=== PATIENT | male | born 1985 | race Caucasian/White ===

== ENCOUNTER 2016-12-16 23:48 | Inpatient (IN) | payer OTHER ==
[~2016-12-16] VITALS: Ht 167.6 cm; Wt 76.9 kg
[2016-12-16 23:49] VITALS: BP 115/81; PULSE 118; RESP 18; TEMP 98.9; O2SAT 97
[2016-12-17] VITALS (10 sets, daily range): BP systolic 114–133; BP diastolic 60–86; PULSE 82–111; RESP 12–21; TEMP 97.7–98.4; O2SAT 98–100
[2016-12-17] MEDS ORDERED: NOVOLOGP2 SQ (00:06)
[2016-12-17] MEDS ORDERED: LEVEMIR SQ (00:06)
[2016-12-17] MEDS ORDERED: SODIUM CHLOR 0.9% 1000 ML INJ 1,000 ML IV ONE ×2 (00:30)
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
--- NOTE | 2016-12-17 00:50 | RADRPT ---
EXAM DATE/TIME: 12/17/2016 00:29 [place] COMPARISON: No previous studies available for comparison. INDICATIONS : Cough. MEDICAL HISTORY : Diabetes mellitus type II. SURGICAL HISTORY : None. ENCOUNTER: Initial ACUITY: 1 day PAIN SCORE: 0/10 LOCATION: Bilateral chest FINDINGS: A single view of the chest demonstrates the lungs to be symmetrically aerated without evidence of mas s, infiltrate or effusion. The cardiomediastinal contours are unremarkable. Osseous structures are intact. CONCLUSION: Normal examination. Clive Felix MD on December 17, 2016 at 0:48 Board Certified Radiologist. This report was verified electronically.
[2016-12-17 01:11] LABS: ANION GAP 16 MEQ/L (5-15); AST (GOT) 15 U/L (15-37); BICARBONATE 22.4 MEQ/L (21.0-32.0); BLOOD UREA NITROGEN 15 MG/DL (7-18); CHLORIDE 96 MEQ/L (98-107); GLOMERULAR FILTRATION RATE 71 ML/MIN (>89); MAGNESIUM 1.9 MG/DL (1.5-2.5); POTASSIUM 3.6 MEQ/L (3.5-5.1); SODIUM (NA) 134 MEQ/L (136-145)
[2016-12-17 01:14] LABS: ALKALINE PHOSPHATASE 116 U/L (45-117); ALT (GPT) 22 U/L (12-78); BETA-HYDROXYBUTYRATE 4.48 MMOL/L (0.00-0.39); TOTAL BILIRUBIN ADULT 0.6 MG/DL (0.2-1.0)
[2016-12-17 02:25] LABS: AUTOMATED NEUTROPHIL # 4.3 TH/MM3 (1.8-7.7); BASOPHIL % 0.5 % (0.0-2.0); EOSINOPHIL # 0.1 TH/MM3 (0-0.4); EOSINOPHIL % 1.9 % (0.0-4.0); HEMATOCRIT 38.8 % (39.0-51.0); HEMO FLAGS DIFF FINAL; LYMPH % 28.1 % (9.0-44.0); MEAN CELL VOLUME 90.8 FL (80.0-100.0); MEAN CORPUSCULAR HEMOGLOBIN 31.8 PG (27.0-34.0); NEUT % 61.5 % (16.0-70.0); PLATELET COUNT 228 TH/MM3 (150-450); RED BLOOD COUNT 4.27 MIL/MM3 (4.50-5.90); RED CELL DISTRIBUTION WIDTH 12.5 % (11.6-17.2); WHITE BLOOD COUNT 6.9 TH/MM3 (4.0-11.0)
[2016-12-17] MEDS ORDERED: ONDANSETRON HCL 4 MG/2 ML VIAL IV ONE (02:45)
[2016-12-17] MEDS ORDERED: INSULIN HUMAN REGULAR 1,000 UNITS/10 ML VIAL SQ ONE (03:00)
[2016-12-17] MEDS ORDERED: SODIUM CHLOR 0.9% 1000 ML INJ 1,000 ML IV SCH (03:30)
[2016-12-17 04:01] LABS: BICARBONATE 17.1 MEQ/L (21.0-32.0); POTASSIUM 3.8 MEQ/L (3.5-5.1)
[2016-12-17 04:13] LABS: BLOOD, URINE NEG (NEG); GLUCOSE,URINE 1000 mg/dL (NEG); KETONE, URINE 150 mg/dL (NEG); MUCUS URINE FEW /lpf (OCC); NITRITE,URINE NEG (NEG); SQUAMOUS EPITHELIAL CELL URINE <1 /hpf (0-5); URINE COLOR LIGHT-YELLOW (YELLW/STRAW)
[2016-12-17] MEDS ORDERED: SODIUM CHLORIDE 0.9% FLUSH 10 ML FLUSH IV FLUSH PRN (04:30)
[2016-12-17] MEDS ORDERED: INSULIN REGULAR (IV INFUSION) 100 UNITS in SODIUM CHLORIDE 0.9% INJ 99 ML IV SCH (04:30)
[2016-12-17] MEDS ORDERED: MISC INFORMATION OTHER ONE (04:30)
[2016-12-17] MEDS ORDERED: DEXT 5%-NACL 0.45% 1000 ML INJ 1,000 ML IV SCH (04:30)
[2016-12-17] MEDS ORDERED: MISCELLANEOUS NURSING INFORMATION XX SCH (04:30)
[2016-12-17] MEDS ORDERED: DEXTROSE 50% IN WATER 50 ML VIAL(D50) IV PUSH PRN (04:30)
[2016-12-17] MEDS ORDERED: POTASSIUM CHLOR 40 MEQ PREMIX 100 ML IV PRN ×2 (04:30)
[2016-12-17] MEDS ORDERED: SODIUM BICARBONATE 8.4% SOLN 50 MEQ/50 ML VIAL IV PRN ×2 (04:30)
[2016-12-17] MEDS ORDERED: POTASSIUM CHLOR 20 MEQ PREMIX 100 ML IV PRN ×5 (04:30)
[2016-12-17] MEDS ORDERED: NALOXONE HCL 0.4 MG/ML AMP IV PRN (04:30)
[2016-12-17] MEDS ORDERED: CHLORHEXIDINE GLUCONATE 2 % 1 PACK (2 CLOTHS) TOP PRN (04:30)
[2016-12-17] MEDS ORDERED: SODIUM PHOSPHATE INJ 15 MMOL in SODIUM CHLORIDE 0.9% INJ 100 ML IV PRN (04:30)
[2016-12-17 04:52] LABS: COMMENT (UR) CULT NOT INDICATED; CULTURE IF INDICATED CULT NOT INDICATED
[2016-12-17] MEDS: DEXT 5%-NACL 0.9% 1000 ML INJ 1,000 ML IV SCH ×3 (07:05→14:30)
[2016-12-17] MEDS: POTASSIUM CHLOR 20 MEQ PREMIX 100 ML IV PRN ×2 (07:16→09:02)
--- NOTE | 2016-12-17 07:20 | HHI.HP ---
[facility] Emmie Oneill Admission Diagnosis Mild DKA Diagnoses: Travel History International Travel<30 Days: No Contact w/Intl Traveler <30 Da: No Traveled to Known Affected Are: No History of Present Illness History from patient, ER physician for medication, review of medical records. Patient at the time of my exam is quite sleepy in ICU. He is also not wanting to talk much because he states he hates ICU settings. He reports he was at [facility] and was treated for DKA for past 2 days. He signed out AMA yesterday and came to our hospital. He reports he came to the hospital because his brother for stem. He reports history of DKA since age of 10 months old. He runs out of his medications because of financial issues recently. Came today with nausea me. Denies diarrhea. Patient denies vomiting. Also reports of mild abdominal pain. No fever. No cough. No diarrhea. Review of Systems Except as stated in HPI: all other systems reviewed are Neg Past Family Social History Past Medical History DM since age of 10months old or so Past Surgical History none Reported Medications levemir 50units [facility] novolog sliding scale Allergies: Coded Allergies: No Known Allergies (Verified , 12/16/16) Uncoded Allergies: N (Allergy, Unknown, 01/17/03) Family History none that he knows of Social History denies smoking/ etoh abuse/ drug abuse Physical Exam Vital Signs Vital Signs Date Time Temp Pulse Resp B/P Pulse Ox O2 Delivery O2 Flow Rate FiO2 12/17/16 03:51 111 16 120/60 98 Room Air 12/17/16 00:21 Room Air 12/17/16 00:13 98 16 133/86 99 Room Air 12/16/16 23:49 98.9 118 18 115/81 97 Physical Exam GENERAL: This is a well-nourished, well-developed patient, in no apparent distress. SKIN: No rashes, ecchymoses or lesions. Cool and dry. HEAD: Atraumatic. Normocephalic. No temporal or scalp tenderness. EYES: Pupils equal round and reactive.No injection or drainage. ENT: Nose without bleeding, purulent drainage or septal hematoma. . Airway patent. NECK: Trachea midline. No JVD CARDIOVASCULAR: regular rate adn rhythm, no murmur Lungs: Equal air entry bilaterally. No wheezing or rales. Neurology: Awake, alert, oriented. No focal deficits. Musculoskeletal: No calf asymmetry or edema. Moving all 4 limbs. Laboratory Laboratory Tests Test 12/17/16 12/17/16 12/17/16 12/17/16 00:31 00:40 02:05 03:25 Venous Blood pH 7.33 Sodium Level 134 136 Potassium Level 3.6 3.8 Chloride Level 96 99 Carbon Dioxide Level 22.4 17.1 Anion Gap 16 20 Blood Urea Nitrogen 15 13 Creatinine 1.21 1.06 Estimat Glomerular Filtration 71 83 Rate Random Glucose 153 334 Calcium Level 8.7 7.6 Magnesium Level 1.9 Total Bilirubin 0.6 Aspartate Amino Transf 15 (AST/SGOT) Alanine Aminotransferase 22 (ALT/SGPT) Alkaline Phosphatase 116 Total Protein 7.5 Albumin 3.5 Lipase 104 B-Hydroxybutyrate 4.48 White Blood Count 6.9 Red Blood Count 4.27 Hemoglobin 13.6 Hematocrit 38.8 Mean Corpuscular Volume 90.8 Mean Corpuscular Hemoglobin 31.8 Mean Corpuscular Hemoglobin 35.0 Concent Red Cell Distribution Width 12.5 Platelet Count 228 Mean Platelet Volume 7.3 Neutrophils (%) (Auto) 61.5 Lymphocytes (%) (Auto) 28.1 Monocytes (%) (Auto) 8.0 Eosinophils (%) (Auto) 1.9 Basophils (%) (Auto) 0.5 Neutrophils # (Auto) 4.3 Lymphocytes # (Auto) 2.0 Monocytes # (Auto) 0.6 Eosinophils # (Auto) 0.1 Basophils # (Auto) 0.0 CBC Comment DIFF FINAL Differential Comment Test 12/17/16 03:45 Urine Color LIGHT-YELLOW Urine Turbidity CLEAR Urine pH 5.0 Urine Specific [place] 1.018 Urine Protein NEG Urine Glucose (UA) 1000 Urine Ketones 150 Urine Occult Blood NEG Urine Nitrite NEG Urine Bilirubin NEG Urine Urobilinogen LESS THAN 2.0 Urine Leukocyte Esterase NEG Urine RBC 1 Urine WBC 2 Urine Squamous Epithelial <1 Cells Urine Mucus FEW Microscopic Urinalysis Comment CULT NOT INDICATED Result Diagram: 12/17/16 0205 12/17/16 0325 Imaging Last 48 hours Impressions Chest X-Ray 12/17/16 0027 Signed Impressions: Service Date/Time: Saturday, December 17, 2016 00:29 - CONCLUSION: Normal examination. Clive Felix MD Assessment and Plan Assessment and Plan Impression: DKA- who signed out ama from [facility] while being treated for dka Plan: repeat BMP showed worsening Anion gap start insulin drip - at lower dosing start d5 NS at 200cc hr continue fingersticks q1hr continue q6hrs electrolytes pt refused day care supervisor case management consult will start long acting once anion gap is closed DVT prophylaxis with SCD Discussed Condition With patient, ER MD, nursing staff Physician Certification 2 Midnight Certification Type: Admission for Inpatient Services Order for Inpatient Services The services are ordered in accordance with Medicare regulations or non- Medicare payer requirements, as applicable. In the case of services not specified as inpatient-only, they are appropriately provided as inpatient services in accordance with the 2-midnight benchmark. Estimated LOS (days): 2 days is the estimated time the patient will need to remain in the hospital, assuming treatment plan goals are met and no additional complications. Post-Hospital Plan: Home Araseli Russell MD Dec 17, 2016 07:20
[2016-12-17] MEDS: SODIUM CHLORIDE 0.9% FLUSH 10 ML FLUSH IV FLUSH SCH ×2 (09:02→21:00)
[2016-12-17 12:06] LABS: BICARBONATE 23.7 MEQ/L (21.0-32.0); MAGNESIUM 1.9 MG/DL (1.5-2.5)
[2016-12-17] MEDS ORDERED: ALPRAZolam 0.25 MG TAB PO PRN (14:00)
[2016-12-17] MEDS: INSULIN DETEMIR 100 UNITS/ML VIAL SQ SCH ×2 (14:43→21:19)
--- NOTE | 2016-12-17 15:23 | HHI.PR ---
Addendum to Inpatient Note Addendum Reason: Additional Documentation Additional Information The patient was requesting something to eat. He said he ran out of insulin. He says he doesn't like relying on his mother for help. His mother was at the bedside and she was very concerned about her son. She requested a psychiatry consult because the patient does not take care of himself. She then requested a palliative care consult because she knows Dr. Delong and was hoping palliative care would be able to help with her son into the right direction. The patient does not seem very receptive to make changes at this point. He seems indifferent about his disease. He is not actively suicidal. Discussed with nursing. Will start by mouth diet. Long-acting insulin has been ordered and the patient will be transitioned off of the insulin drip. He'll continue to have labs checked. A palliative care consult was placed per the mother's request. Anson Jackson DO Dec 17, 2016 15:22
[2016-12-17] MEDS ORDERED: clonazePAM 0.5 MG TAB PO ONE (17:00)
[2016-12-17] MEDS ORDERED: clonazePAM 1 MG TAB PO PRN (17:00)
[2016-12-17] MEDS ORDERED: clonazePAM 0.5 MG TAB PO PRN (17:00)
[2016-12-17 18:05] LABS: ANION GAP 10 MEQ/L (5-15); BICARBONATE 25.3 MEQ/L (21.0-32.0); BLOOD UREA NITROGEN 8 MG/DL (7-18); CHLORIDE 103 MEQ/L (98-107); GLOMERULAR FILTRATION RATE 60 ML/MIN (>89); MAGNESIUM 1.8 MG/DL (1.5-2.5); POTASSIUM 3.5 MEQ/L (3.5-5.1); SODIUM (NA) 138 MEQ/L (136-145)
[2016-12-17 18:09] LABS: BETA-HYDROXYBUTYRATE 1.16 MMOL/L (0.00-0.39)
[2016-12-17 18:58] LABS: HEMOGLOBIN A1a 1.4 %; HEMOGLOBIN A1b 0.8 %; HEMOGLOBIN Ao 76.8 %; HEMOGLOBIN F 1.7 %; HEMOGLOBIN LA1C 2.3 %; HEMOGLOBIN P3 4.5 %
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
[2016-12-17] MEDS ORDERED: traZODone HCL 50 MG TAB PO SCH (21:00)
[2016-12-17] MEDS: clonazePAM 0.5 MG TAB PO SCH (21:18)
[2016-12-17] MEDS: INSULIN ASPART SUPPLEMENTAL SCALE SQ SCH (21:19)
[2016-12-17 21:36] LABS: BICARBONATE 28.1 MEQ/L (21.0-32.0); MAGNESIUM 1.8 MG/DL (1.5-2.5); POTASSIUM 3.9 MEQ/L (3.5-5.1)
[2016-12-18] VITALS (8 sets, daily range): BP systolic 102–128; BP diastolic 61–68; PULSE 84–100; RESP 16–20; TEMP 96.8–98.2; O2SAT 96–99
[2016-12-18] MEDS ORDERED: CHLORHEXIDINE GLUCONATE 2 % 1 PACK (2 CLOTHS) TOP SCH (04:00)
[2016-12-18 04:38] LABS: BETA-HYDROXYBUTYRATE 0.21 MMOL/L (0.00-0.39); BICARBONATE 29.4 MEQ/L (21.0-32.0); MAGNESIUM 1.9 MG/DL (1.5-2.5); POTASSIUM 3.2 MEQ/L (3.5-5.1)
[2016-12-18] MEDS: clonazePAM 0.5 MG TAB PO SCH (05:40)
[2016-12-18] MEDS: INSULIN ASPART SUPPLEMENTAL SCALE SQ SCH (06:18)
[2016-12-18 06:37] LABS: BLOOD GAS VENOUS PCO2 32 mmHg (44-48); BLOOD GAS VENOUS pH 7.31 (7.360-7.400)
[2016-12-18 06:38] LABS: BLOOD GAS CARBOXYHEMOGLOBIN 1.5 % (0-4); BLOOD GAS METHEMOGLOBIN 0.9 % (0-2); BLOOD GAS VENOUS BASE EXCESS -9.4 mmol/L (-2-2); BLOOD GAS VENOUS HCO3 16 mmol/L (22-26); BLOOD GAS VENOUS O2 HGB SAT 92 % (70-76); BLOOD GAS VENOUS PO2 75 mmHg (35-40)
[2016-12-18 06:39] LABS: CRITICAL VALUE YES; DRAW SITE NURSE; STAT NO; TEMP CORR TO 98.6
[2016-12-18] MEDS ORDERED: SERTRALINE HCL 50 MG TAB PO SCH (09:00)
[2016-12-18] MEDS: INSULIN DETEMIR 100 UNITS/ML VIAL SQ SCH (10:10)
[2016-12-18] MEDS ORDERED: POTASSIUM CHLORIDE 25 MEQ EFFERVESCENT TAB PO ONE (13:45)
[2016-12-18] MEDS ORDERED: LEVEMIR SQ (14:04)
[2016-12-18] MEDS ORDERED: NOVOLOGP2 SQ (14:04)
[2016-12-18] MEDS ORDERED: ZOLO50TA PO (14:04)
[2016-12-18] MEDS ORDERED: CLON.5 PO (14:04)
--- NOTE | 2016-12-18 14:05 | HHI.DCPOC ---
Discharge Care Plan Diagnosis: (1) Noncompliance with medication regimen (2) DKA (diabetic ketoacidoses) (3) Depression (4) Anxiety Goals to Promote Your Health * To prevent worsening of your condition and complications * To maintain your health at the optimal level Directions to Meet Your Goals Take your medications as prescribed Follow your dietary instruction Follow activity as directed Keep your appointments as scheduled Take your immunizations and boosters as scheduled If your symptoms worsen call your PCP, if no PCP go to Urgent Care Center or Emergency Room Smoking is Dangerous to Your Health. Avoid second hand smoke Call the 24-hour hour crisis hotline for domestic abuse at Anson Jackson DO Dec 18, 2016 14:05
--- NOTE | 2016-12-18 14:12 | HHI.PR ---
Subjective Remarks The pt wanted to go home. He said he would need new scripts. He talked with the certified diabetes educator. He says he will try the anxiety/ depression meds. He was tolerating a diet. Discussed with nursing. Objective Vitals Vital Signs Date Time Temp Pulse Resp B/P Pulse Ox O2 Delivery O2 Flow Rate FiO2 12/18/16 12:28 96.8 90 18 108/67 97 12/18/16 08:00 97.4 99 20 102/68 98 12/18/16 04:10 87 12/18/16 03:13 84 12/18/16 02:38 96.9 92 16 115/68 96 12/18/16 02:00 89 12/18/16 00:18 98 12/18/16 00:00 98.2 98 18 128/61 99 12/18/16 00:00 100 12/17/16 22:00 98 12/17/16 20:00 98.1 100 21 114/63 100 12/17/16 20:00 86 12/17/16 19:00 98 Room Air 12/17/16 18:00 95 12/17/16 16:00 82 12/17/16 16:00 97.7 86 17 117/66 99 I/O 12/17/16 12/17/16 12/17/16 12/18/16 12/18/16 12/18/16 07:00 15:00 23:00 07:00 15:00 23:00 Intake Total 1957 ml 150 ml Output Total 1400 ml 500 ml 750 ml Balance -1400 ml 1457 ml -750 ml 150 ml Intake Oral 150 ml IV Total 1957 ml Output Urine Total 1400 ml 500 ml 750 ml # Voids 1 1 1 # Bowel Movements 0 Result Diagram: 12/17/16 0205 12/18/16 0321 Imaging Last Impressions Chest X-Ray 12/17/16 0027 Signed Impressions: Service Date/Time: Saturday, December 17, 2016 00:29 - CONCLUSION: Normal examination. Clive Felix MD Objective Remarks GENERAL: This is a well-nourished, well-developed patient, in no apparent distress. SKIN: No rashes, ecchymoses or lesions. Cool and dry. HEAD: Atraumatic. Normocephalic. No temporal or scalp tenderness. EYES: Pupils equal round and reactive.No injection or drainage. ENT: Nose without bleeding, purulent drainage or septal hematoma. . Airway patent. NECK: Trachea midline. No JVD CARDIOVASCULAR: regular rate adn rhythm, no murmur Lungs: Equal air entry bilaterally. No wheezing or rales. Neurology: Awake, alert, oriented. No focal deficits. Musculoskeletal: No calf asymmetry or edema. Moving all 4 limbs. Psych: Flattened affect. Medications and IVs Current Medications Medications (Trade) Dose Ordered Sig/Fareed Route Start Time Stop Time Status Last Admin (NS Flush) 2 ml UNSCH PRN IV FLUSH 12/17/16 04:30 (NS Flush) 2 ml BID IV FLUSH 12/17/16 09:00 12/17/16 21:00 (Narcan Inj) 0.4 mg UNSCH PRN IV 12/17/16 04:30 Dextrose 50 ml 50 ml UNSCH PRN IV PUSH 12/17/16 04:30 Potassium Chloride 100 ml @ 100 mls/hr Q1H PRN IV 12/17/16 04:30 Potassium Chloride 100 ml @ 50 mls/hr Q2H PRN IV 12/17/16 04:30 Potassium Chloride 100 ml @ 100 mls/hr Q1H PRN IV 12/17/16 04:30 Potassium Chloride 100 ml @ 100 mls/hr Q1H PRN IV 12/17/16 04:30 Potassium Chloride 100 ml @ 50 mls/hr Q2H PRN IV 12/17/16 04:30 Potassium Chloride 100 ml @ 50 mls/hr Q2H PRN IV 12/17/16 04:30 Potassium Chloride 100 ml @ 50 mls/hr Q2H PRN IV 12/17/16 04:30 12/17/16 09:02 (KCl 20 Meq Premix Inj) 100 ml @ 50 mls/hr Q2H PRN IV 12/17/16 04:30 (Sodium Bicarbonate 8.4% Inj) 100 meq UNSCH PRN IV 12/17/16 04:30 Sodium Bicarbonate 50 meq 50 meq UNSCH PRN IV 12/17/16 04:30 (Sodium Phosphate Inj/NS Inj) 105 ml @ 25 mls/hr UNSCH PRN IV 12/17/16 04:30 12/17/16 14:16 Miscellaneous Information 1 Q361D XX 12/17/16 04:30 (Chlorhexidine 2% Cloth) 3 pack Taper DAILY@04 TOP 12/18/16 04:00 12/14/17 03:59 12/18/16 04:00 (Chlorhexidine 2% Cloth) 3 pack UNSCH PRN TOP 12/17/16 04:30 (Levemir Inj) 15 units BID SQ 12/17/16 14:00 12/18/16 10:10 (KlonoPIN) 0.5 mg Q8HR PO 12/17/16 22:00 12/18/16 05:40 (Desyrel) 50 mg HS PO 12/17/16 21:00 12/17/16 21:18 (Zoloft) 25 mg DAILY PO 12/18/16 09:00 12/18/16 10:03 (KlonoPIN) 0.5 mg Q6HR PRN PO 12/17/16 17:00 (KlonoPIN) 1 mg Q6HR PRN PO 12/17/16 17:00 A/P Assessment and Plan DKA The pt signed out AMA from Lino floyd while being treated for DKA. He was started on DKA protocol in the ICU, now transferred to the medical floor. Anion gap closed. Insulin gtt d/c. Started on long-acting insulin and sliding scale. Tolerating a diet. Met with the certified diabetes educator. IVFs have been d/c. Electrolytes were monitored closely and repleted as needed. - case management assisting with obtaining meds. - resume home insulin regimen. Depression/ Anxiety Palliative care consult appreciated. - continue Zoloft and Klonopin. - follow up with PCP Hypokalemia Likely s/t decreased PO intake. - replete with 50 meq KCl 12/18. - ADAT. DVT prophylaxis with SCDs Discharge Planning D/c home Anson Jackson DO Dec 18, 2016 14:12
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
== END 2016-12-18 15:58 | disposition home or self-care (01) | DRG 639 ==
LOC: NEPE 23:48 → NEDA 12-17 04:09 → N03A 12-17 05:59 → HOCA 12-18 02:34
PROVIDERS: ADMIT Hospitalist; ATTEND Hospitalist
DX: E10.10 Type 1 diabetes mellitus with ketoacidosis without coma (principal); F32.9 Major depressive disorder, single episode, unspecified; F41.9 Anxiety disorder, unspecified; Z91.120 Patient's intentional underdosing of medication regimen due to financial hardship; Z79.4 Long term (current) use of insulin; E87.6 Hypokalemia
CPT/HCPCS: 71010; 80048; 80053; 81001; 82010; 82800; 82805; 82948; 83036; 83690; 83735; 84100; 85025; 87641; 96361; 96372; 96374; 99285; J1815; J1817; J2405; J3480; J7030; J7042

== ENCOUNTER 2017-09-06 20:42 | Inpatient (IN) | payer OTHER ==
[~2017-09-06] VITALS: Ht 177.8 cm; Wt 75.0 kg
[~2017-09-06 20:42] MED LIST: CLON.5 PO; LEVEMIR SQ; NOVOLOGP2 SQ; ZOLO50TA PO
[2017-09-06 20:49] VITALS: BP 110/69; PULSE 118; RESP 18; TEMP 97.7; O2SAT 100
[2017-09-06 20:52] VITALS: O2SAT 100
[2017-09-06] MEDS ORDERED: SODIUM CHLOR 0.9% 1000 ML INJ 1,000 ML IV ONE ×2 (21:00)
[2017-09-06] MEDS ORDERED: INSULIN REGULAR (IV INFUSION) 100 UNITS in SODIUM CHLORIDE 0.9% INJ 99 ML IV PRN (21:15)
[2017-09-06] MEDS ORDERED: INSULIN HUMAN REGULAR 1,000 UNITS/10 ML VIAL IV PUSH ONE (21:15)
[2017-09-06] MEDS ORDERED: SODIUM CHLOR 0.9% 1000 ML INJ 1,000 ML IV SCH (21:31)
[2017-09-06] MEDS: DEXT 5%-NACL 0.9% 1000 ML INJ 1,000 ML IV SCH (21:31)
[2017-09-06 21:35] LABS: BILIRUBIN, URINE NEG (NEG); BLOOD, URINE NEG (NEG); GLUCOSE,URINE 1000 mg/dL (NEG); KETONE, URINE 150 mg/dL (NEG); NITRITE,URINE NEG (NEG); URINE COLOR LIGHT-YELLOW (YELLW/STRAW); URINE LEUKOCYTE ESTERASE NEG (NEG)
[2017-09-06 21:36] LABS: AUTOMATED NEUTROPHIL # 4.5 TH/MM3 (1.8-7.7); BASOPHIL # 0.1 TH/MM3 (0-0.2); BASOPHIL % 0.9 % (0.0-2.0); EOSINOPHIL % 0.6 % (0.0-4.0); HEMOGLOBIN 15.7 GM/DL (13.0-17.0); LYMPH % 28.4 % (9.0-44.0); LYMPHOCYTE # 2.1 TH/MM3 (1.0-4.8); MEAN CELL VOLUME 98.2 FL (80.0-100.0); MEAN CORPUSCULAR HEMOGLOBIN 32.1 PG (27.0-34.0); MEAN CORPUSCULAR HGB CONC 32.6 % (32.0-36.0); MEAN PLATELET VOLUME 9.4 FL (7.0-11.0); MONO % 8.1 % (0.0-8.0); MONOCYTE # 0.6 TH/MM3 (0-0.9); PLATELET COUNT 244 TH/MM3 (150-450); RED BLOOD COUNT 4.88 MIL/MM3 (4.50-5.90); RED CELL DISTRIBUTION WIDTH 13.4 % (11.6-17.2); WHITE BLOOD COUNT 7.2 TH/MM3 (4.0-11.0)
[2017-09-06 21:37] LABS: LACTIC ACID SEPSIS PROTOCOL 2.6 mmol/L (0.4-2.0)
[2017-09-06] MEDS ORDERED: POTASSIUM CHLOR 40 MEQ PREMIX 100 ML IV PRN ×2 (21:45)
[2017-09-06] MEDS ORDERED: SODIUM BICARBONATE 8.4% SOLN 50 MEQ/50 ML VIAL IV PUSH PRN ×2 (21:45)
[2017-09-06] MEDS ORDERED: SODIUM PHOSPHATE INJ 15 MMOL in SODIUM CHLORIDE 0.9% INJ 100 ML IV PRN (21:45)
[2017-09-06] MEDS ORDERED: POTASSIUM CHLOR 20 MEQ PREMIX 100 ML IV PRN ×6 (21:45)
[2017-09-06 21:47] LABS: ALBUMIN 3.6 GM/DL (3.4-5.0); ALT (GPT) 219 U/L (12-78); AST (GOT) 117 U/L (15-37); BICARBONATE 14.2 MEQ/L (21.0-32.0); BLOOD UREA NITROGEN 21 MG/DL (7-18); CALCIUM 9.2 MG/DL (8.5-10.1); CHLORIDE 86 MEQ/L (98-107); GLOMERULAR FILTRATION RATE 60 ML/MIN (>89); SODIUM (NA) 125 MEQ/L (136-145); TOTAL BILIRUBIN ADULT 0.9 MG/DL (0.2-1.0)
--- NOTE | 2017-09-06 21:54 | PD ---
HPI Chief Complaint: Diabetic Time Seen by Provider: 20:46 Travel History International Travel<30 days: No Contact w/Intl Traveler<30days: No Traveled to known affect area: No History of Present Illness HPI 31-year-old male that presents to the ED for evaluation of hyperglycemia and weakness. Patient has a significant history of diabetes type 1 and is supposed to be in insulin but currently is noncompliant secondary to not being able to afford his insulin. Per report I was given and per patient he was recently at [facility] and was discharged about 2 days ago for DKA. Patient has not taken any of his insulin for the past 2 days and apparently was on his way to the hospital but they had to stop at a gas station as patient was too sick to come. Ambulance was called and they brought him here. Patient was given some fluids and found that his sugar was "high." Patient has a history of DKA in the past year. Patient is hard to get a history from as he is somewhat somnolent and appears to be slightly altered. He complains of pain everywhere. He denies any other medical issues at this time. Pain per patient is 6 out of 10. PFSH Past Medical History Blood Disorders: No Cardiovascular Problems: Yes (HTN) Diabetes: Yes Patient Takes Glucophage: No Diminished Hearing: No Hypertension: Yes Social History Alcohol Use: No Tobacco Use: No Substance Use: No Allergies-Medications (Allergen,Severity, Reaction): Coded Allergies: No Known Allergies (Verified Allergy, Unknown, 09/06/17) Uncoded Allergies: N (Allergy, Unknown, 01/17/03) Reported Meds & Prescriptions Reported Meds & Active Scripts Active Zoloft (Sertraline HCl) 50 Mg Tab 25 Mg PO DAILY Klonopin (Clonazepam) 0.5 Mg Tab 0.5 Mg PO Q8HR PRN Novolog Inj (Insulin Aspart) 1,000 Unit/10 Ml Vial 5-25 Units SQ ACHS Max dose at bedtime:( )units; sugars less than 70,(0) units; sugars 150-199,(5) units; sugars 200-249,(10) units; sugars 250-299,(15) units; sugars 300-349,(20)units; sugars greater than 349,(25)units Levemir Inj (Insulin Detemir) 1,000 unit/ 10 ML Vial 55 Units SQ HS 30 Days Do not mix with any other Insulin. Review of Systems Except as stated in HPI: all other systems reviewed are Neg Physical Exam Narrative GENERAL: SKIN: Warm and dry. HEAD: Atraumatic. Normocephalic. EYES: Pupils equal and round. No scleral icterus. No injection or drainage. ENT: No nasal bleeding or discharge. Mucous membranes pink and moist. Tongue is midline. No uvula deviation. NECK: Trachea midline. No JVD. CARDIOVASCULAR: Tachycardic rate and rhythm. No murmurs, S3, S4. RESPIRATORY: No accessory muscle use. Clear to auscultation. Breath sounds equal bilaterally. GASTROINTESTINAL: Abdomen soft, non-tender, nondistended. Hepatic and splenic margins not palpable. MUSCULOSKELETAL: Extremities without clubbing, cyanosis, or edema. No obvious deformities. Full range of motion of the upper and lower extremities bilaterally. 2+ pulses bilaterally. NEUROLOGICAL: Awake and alert. No obvious cranial nerve deficits. Motor grossly within normal limits. Five out of 5 muscle strength in the arms and legs. Normal speech. PSYCHIATRIC: Appropriate mood and affect; insight and judgment normal. Data Data Last Documented VS Vital Signs Date Time Temp Pulse Resp B/P (MAP) Pulse Ox O2 Delivery O2 Flow Rate FiO2 09/06/17 20:52 100 Room Air 09/06/17 20:49 97.7 118 18 Orders Orders Complete Blood Count With Diff (09/06/17 20:49) Comprehensive Metabolic Panel (09/06/17 20:49) Blood Culture (09/06/17 20:49) Urinalysis - C+S If Indicated (09/06/17 20:49) Blood Gas Venous Ph (09/06/17 20:49) Beta Hydroxybutyrate (Acetone) (09/06/17 20:49) Iv Access Insert/Monitor (09/06/17 20:49) Ecg Monitoring (09/06/17 20:49) Oximetry (09/06/17 20:49) Drug Screen, Random Urine (09/06/17 20:49) Alcohol (Ethanol) (09/06/17 20:49) Sodium Chlor 0.9% 1000 Ml Inj (Ns 1000 M (09/06/17 21:00) Sodium Chlor 0.9% 1000 Ml Inj (Ns 1000 M (09/06/17 21:00) Lactic Acid Sepsis Protocol (09/06/17 20:51) Blood Glucose (09/06/17 20:51) Electrocardiogram (09/06/17 ) Insulin Human Regular Inj (Novolin R Inj (09/06/17 21:15) Insulin Regular (Iv Infusion) (Novolin R (09/06/17 21:15) Packaging Supervisor / Telemetry [id number] (09/06/17 21:31) ^ Insert Iv (09/06/17 21:31) Diet Npo (09/07/17 Breakfast) Sodium Chlor 0.9% 1000 Ml Inj (Ns 1000 M (09/06/17 21:31) Dext 5%-Nacl 0.9% 1000 Ml Inj (D5w-Ns 10 (09/06/17 21:31) Potassium Chlor 40 Meq Premix (Kcl 40 Me (09/06/17 21:45) Potassium Chlor 40 Meq Premix (Kcl 40 Me (09/06/17 21:45) Potassium Chlor 20 Meq Premix (Kcl 20 Me (09/06/17 21:45) Potassium Chlor 20 Meq Premix (Kcl 20 Me (09/06/17 21:45) Potassium Chlor 20 Meq Premix (Kcl 20 Me (09/06/17 21:45) Potassium Chlor 20 Meq Premix (Kcl 20 Me (09/06/17 21:45) Potassium Chlor 20 Meq Premix (Kcl 20 Me (09/06/17 21:45) Potassium Chlor 20 Meq Premix (Kcl 20 Me (09/06/17 21:45) Sodium Bicarbonate 8.4% Inj (Sodium Bica (09/06/17 21:45) Sodium Bicarbonate 8.4% Inj (Sodium Bica (09/06/17 21:45) Sodium Phosphate Inj (Sodium Phosphate I (09/06/17 21:45) Hemoglobin (Hgb) A1c (09/06/17 21:31) Urinalysis - C+S If Indicated (09/06/17 21:31) Basic Metabolic Panel (Bmp) (09/07/17 02:31) Basic Metabolic Panel (Bmp) (09/07/17 08:31) Basic Metabolic Panel (Bmp) (09/07/17 14:31) Basic Metabolic Panel (Bmp) (09/07/17 20:31) Magnesium (Mg) (09/07/17 02:31) Magnesium (Mg) (09/07/17 08:31) Magnesium (Mg) (09/07/17 14:31) Magnesium (Mg) (09/07/17 20:31) Phosphorus (Po4) (09/07/17 02:31) Phosphorus (Po4) (09/07/17 08:31) Phosphorus (Po4) (09/07/17 14:31) Phosphorus (Po4) (09/07/17 20:31) Beta Hydroxybutyrate (Acetone) (09/07/17 08:31) Beta Hydroxybutyrate (Acetone) (09/07/17 20:31) Lactic Acid (09/06/17 21:54) Admit Order (Ed Use Only) (09/06/17 22:46) Labs Laboratory Tests Test 09/06/17 20:45 09/06/17 20:52 09/06/17 20:57 09/06/17 21:04 Venous Blood pH 7.23 White Blood Count 7.2 TH/MM3 Red Blood Count 4.88 MIL/MM3 Hemoglobin 15.7 GM/DL Hematocrit 48.0 % Mean Corpuscular Volume 98.2 FL Mean Corpuscular Hemoglobin 32.1 PG Mean Corpuscular Hemoglobin Concent 32.6 % Red Cell Distribution Width 13.4 % Platelet Count 244 TH/MM3 Mean Platelet Volume 9.4 FL Neutrophils (%) (Auto) 62.0 % Lymphocytes (%) (Auto) 28.4 % Monocytes (%) (Auto) 8.1 % Eosinophils (%) (Auto) 0.6 % Basophils (%) (Auto) 0.9 % Neutrophils # (Auto) 4.5 TH/MM3 Lymphocytes # (Auto) 2.1 TH/MM3 Monocytes # (Auto) 0.6 TH/MM3 Eosinophils # (Auto) 0.0 TH/MM3 Basophils # (Auto) 0.1 TH/MM3 CBC Comment AUTO DIFF Differential Total Cells Counted 100 Neutrophils % (Manual) 66 % Band Neutrophils % 2 % Lymphocytes % 22 % Monocytes % 8 % Neutrophils # (Manual) 5.0 TH/MM3 Metamyelocytes 1 % Promyelocytes 1 % Differential Comment FINAL DIFF MANUAL Platelet Estimate NORMAL Platelet Morphology Comment CLUMPED Blood Urea Nitrogen 21 MG/DL Creatinine 1.40 MG/DL Random Glucose 771 MG/DL Total Protein 7.9 GM/DL Albumin 3.6 GM/DL Calcium Level 9.2 MG/DL Alkaline Phosphatase 307 U/L Aspartate Amino Transf (AST/SGOT) 117 U/L Alanine Aminotransferase (ALT/SGPT) 219 U/L Total Bilirubin 0.9 MG/DL Sodium Level 125 MEQ/L Potassium Level 5.2 MEQ/L Chloride Level 86 MEQ/L Carbon Dioxide Level 14.2 MEQ/L Anion Gap 25 MEQ/L Estimat Glomerular Filtration Rate 60 ML/MIN Ethyl Alcohol Level LESS THAN 3 MG/DL B-Hydroxybutyrate 9.52 MMOL/L Lactic Acid Level 2.6 mmol/L Urine Color LIGHT-YELLOW Urine Turbidity CLEAR Urine pH 5.0 Urine Specific [place] 1.021 Urine Protein NEG mg/dL Urine Glucose (UA) 1000 mg/dL Urine Ketones 150 mg/dL Urine Occult Blood NEG Urine Nitrite NEG Urine Bilirubin NEG Urine Urobilinogen LESS THAN 2.0 MG/DL Urine Leukocyte Esterase NEG Urine WBC 1 /hpf Microscopic Urinalysis Comment CULT NOT INDICATED Urine Opiates Screen NEG Urine Barbiturates Screen NEG Urine Amphetamines Screen NEG Urine Benzodiazepines Screen NEG Urine Cocaine Screen NEG Urine Cannabinoids Screen NEG [facility] Medical Decision Making Medical Screen Exam Complete: Yes Emergency Medical Condition: Yes Medical Record Reviewed: Yes Interpretation(s) CBC Diagram 09/06/17 20:52 EKG shows sinus tachycardia but no sign of acute ischemia or arrhythmia noted by me and attending. Lactic acid elevated Venous gas show acidosis BMP Diagram 09/06/17 20:52 Total Protein 7.9, Albumin 3.6, Calcium Level 9.2, Alkaline Phosphatase 307 H, Aspartate Amino Transf (AST/SGOT) 117 H, Alanine Aminotransferase (ALT/SGPT) 219 H, Total Bilirubin 0.9 acetone elevated drug screen negative Differential Diagnosis DKA versus hyperglycemia versus noncompliance Narrative Course 31-year-old male that presents to the ED for evaluation of BKA. Patient was properly examined and was found to have signs and symptoms very consistent with DKA. Labs were ordered. Patient was given 2 L of fluid. Labs showed patient to be acidotic and in DKA. Patient will be started on DKA protocols. Case discussed with my attending Dr. Chavarria who was made aware of all findings and recommends admission. Phonograph Mechanic was paged and Dr Samayoa admitted the patient. Diagnosis Primary Impression: DKA (diabetic ketoacidoses) Qualified Codes: E10.10 - Type 1 diabetes mellitus with ketoacidosis without coma Admitting Information Admitting Physician Requests: Admit Anthony Charles Sep 06, 2017 21:54
[2017-09-06 22:00] VITALS: BP 108/63; PULSE 124; RESP 18; O2SAT 100
[2017-09-06 22:02] LABS: ALKALINE PHOSPHATASE 307 U/L (45-117); TOTAL PROTEIN 7.9 GM/DL (6.4-8.2)
[2017-09-06 22:03] LABS: GLUCOSE,RANDOM 771 MG/DL (74-106)
[2017-09-06 22:34] LABS: BANDS 2 % (0-6); LYMPHOCYTES 22 % (9-44); METAMYELOCYTES 1 % (0-1); MONOCYTES 8 % (0-8); POLYS (SEG NEUTROPHILS) 66 % (16-70); PROMYELOCYTES 1 % (0-0)
[2017-09-06 23:00] VITALS: BP 112/66; PULSE 120; RESP 18; O2SAT 100
[2017-09-06] MEDS ORDERED: MAGNESIUM HYDROXIDE SUSP 30 ML CUP PO PRN (23:15)
[2017-09-06] MEDS ORDERED: SENNOSIDES 8.6 MG TAB PO PRN (23:15)
[2017-09-06] MEDS ORDERED: RESP: ALBUTEROL 2.5 MG/IPRATROPIUM 0.5 MG NEB (PRN) INH (23:15)
[2017-09-06] MEDS ORDERED: CHLORHEXIDINE GLUCONATE 2 % 1 PACK (2 CLOTHS) TOP PRN (23:15)
[2017-09-06] MEDS ORDERED: ONDANSETRON HCL 4 MG/2 ML VIAL IV PUSH PRN (23:15)
[2017-09-06] MEDS ORDERED: NURSING INFORMATION XX SCH (23:15)
[2017-09-06] MEDS ORDERED: SODIUM CHLORIDE 0.9% FLUSH 10 ML FLUSH IV FLUSH PRN (23:15)
[2017-09-06] MEDS ORDERED: LACTULOSE SYRUP 20 GM/30 ML CUP PO PRN (23:15)
[2017-09-06] MEDS ORDERED: METOCLOPRAMIDE HCL 10 MG/2 ML VIAL IV PUSH PRN (23:15)
--- NOTE | 2017-09-06 23:27 | HHI.HP ---
HPI Service Critical Care Medicine Primary Care Physician Emmie Oneill D.O. Admission Diagnosis severe DKA, non compliant type 1 DM Diagnosis: Travel History International Travel<30 Days: No Contact w/Intl Traveler <30 Da: No Traveled to Known Affected Are: No History of Present Illness History of Present Illness HPI 31-year-old male that presents to the ED for evaluation of hyperglycemia and weakness. Patient has a significant history of diabetes type 1 and is supposed to be in insulin but currently is noncompliant secondary to not being able to afford his insulin. Per report I was given and per patient he was recently at [facility] and was discharged about 2 days ago for DKA. Patient has not taken any of his insulin for the past 2 days and apparently was on his way to the hospital but they had to stop at a gas station as patient was too sick to come. Ambulance was called and they brought him here. Patient was given some fluids and found that his sugar was "high." Patient has a history of DKA in the past year. Patient is hard to get a history from as he is somewhat somnolent and appears to be slightly altered. He complains of pain everywhere. He denies any other medical issues at this time. Pain per patient is 6 out of 10. History PFSH Past Medical History Blood Disorders: No Cardiovascular Problems: Yes (HTN) Diabetes: Yes Patient Takes Glucophage: No Diminished Hearing: No Hypertension: Yes Social History Alcohol Use: No Tobacco Use: No Substance Use: No Allergies-Medications Allergies-Medications (Allergen,Severity, Reaction): Coded Allergies: No Known Allergies (Verified Allergy, Unknown, 09/06/17) Uncoded Allergies: N (Allergy, Unknown, 01/17/03) Reported Meds & Prescriptions Reported Meds & Active Scripts Active Zoloft (Sertraline HCl) 50 Mg Tab 25 Mg PO DAILY Klonopin (Clonazepam) 0.5 Mg Tab 0.5 Mg PO Q8HR PRN Novolog Inj (Insulin Aspart) 1,000 Unit/10 Ml Vial 5-25 Units SQ ACHS Max dose at bedtime:( )units; sugars less than 70,(0) units; sugars 150-199,(5) units; sugars 200-249,(10) units; sugars 250-299,(15) units; sugars 300-349,(20)units; sugars greater than 349,(25)units Levemir Inj (Insulin Detemir) 1,000 unit/ 10 ML Vial 55 Units SQ HS 30 Days Do not mix with any other Insulin. ROS Review of Systems Except as stated in HPI: all other systems reviewed are Neg Past Family Social History Allergies: Coded Allergies: No Known Allergies (Verified Allergy, Unknown, 09/06/17) Uncoded Allergies: N (Allergy, Unknown, 01/17/03) Physical Exam Vital Signs Vital Signs Date Time Temp Pulse Resp B/P (MAP) Pulse Ox O2 Delivery O2 Flow Rate FiO2 09/06/17 20:52 100 Room Air 09/06/17 20:49 97.7 118 18 110/69 (83) 100 Room Air 09/06/17 20:49 18 100 Room Air Physical Exam Narrative GENERAL: SKIN: Warm and dry. HEAD: Atraumatic. Normocephalic. EYES: Pupils equal and round. No scleral icterus. No injection or drainage. ENT: No nasal bleeding or discharge. Mucous membranes pink and moist. Tongue is midline. No uvula deviation. NECK: Trachea midline. No JVD. CARDIOVASCULAR: Tachycardic rate and rhythm. No murmurs, S3, S4. RESPIRATORY: No accessory muscle use. Clear to auscultation. Breath sounds equal bilaterally. GASTROINTESTINAL: Abdomen soft, non-tender, nondistended. Hepatic and splenic margins not palpable. MUSCULOSKELETAL: Extremities without clubbing, cyanosis, or edema. No obvious deformities. Full range of motion of the upper and lower extremities bilaterally. 2+ pulses bilaterally. NEUROLOGICAL: Awake and alert. No obvious cranial nerve deficits. Motor grossly within normal limits. Five out of 5 muscle strength in the arms and legs. Normal speech. PSYCHIATRIC: Appropriate mood and affect; insight and judgment normal. Laboratory Laboratory Tests Test 09/06/17 20:45 09/06/17 20:52 09/06/17 20:57 09/06/17 21:04 Venous Blood pH 7.23 White Blood Count 7.2 Red Blood Count 4.88 Hemoglobin 15.7 Hematocrit 48.0 Mean Corpuscular Volume 98.2 Mean Corpuscular Hemoglobin 32.1 Mean Corpuscular Hemoglobin Concent 32.6 Red Cell Distribution Width 13.4 Platelet Count 244 Mean Platelet Volume 9.4 Neutrophils (%) (Auto) 62.0 Lymphocytes (%) (Auto) 28.4 Monocytes (%) (Auto) 8.1 Eosinophils (%) (Auto) 0.6 Basophils (%) (Auto) 0.9 Neutrophils # (Auto) 4.5 Lymphocytes # (Auto) 2.1 Monocytes # (Auto) 0.6 Eosinophils # (Auto) 0.0 Basophils # (Auto) 0.1 CBC Comment AUTO DIFF Differential Total Cells Counted 100 Neutrophils % (Manual) 66 Band Neutrophils % 2 Lymphocytes % 22 Monocytes % 8 Neutrophils # (Manual) 5.0 Metamyelocytes 1 Promyelocytes 1 Differential Comment FINAL DIFF MANUAL Platelet Estimate NORMAL Platelet Morphology Comment CLUMPED Blood Urea Nitrogen 21 Creatinine 1.40 Random Glucose 771 Total Protein 7.9 Albumin 3.6 Calcium Level 9.2 Alkaline Phosphatase 307 Aspartate Amino Transf (AST/SGOT) 117 Alanine Aminotransferase (ALT/SGPT) 219 Total Bilirubin 0.9 Sodium Level 125 Potassium Level 5.2 Chloride Level 86 Carbon Dioxide Level 14.2 Anion Gap 25 Estimat Glomerular Filtration Rate 60 Ethyl Alcohol Level LESS THAN 3 B-Hydroxybutyrate 9.52 Lactic Acid Level 2.6 Urine Color LIGHT-YELLOW Urine Turbidity CLEAR Urine pH 5.0 Urine Specific [place] 1.021 Urine Protein NEG Urine Glucose (UA) 1000 Urine Ketones 150 Urine Occult Blood NEG Urine Nitrite NEG Urine Bilirubin NEG Urine Urobilinogen LESS THAN 2.0 Urine Leukocyte Esterase NEG Urine WBC 1 Microscopic Urinalysis Comment CULT NOT INDICATED Urine Opiates Screen NEG Urine Barbiturates Screen NEG Urine Amphetamines Screen NEG Urine Benzodiazepines Screen NEG Urine Cocaine Screen NEG Urine Cannabinoids Screen NEG Date/Time Source Procedure Growth Status 09/06/17 20:57 Blood Peripheral Aerobic Blood Culture Pending Received 09/06/17 20:57 Blood Peripheral Anaerobic Blood Culture Pending Received Result Diagram: 09/06/17205109/06/172051 Caprini VTE Risk Assessment Caprini VTE Risk Assessment: No/Low Risk (score <= 1) Caprini Risk Assessment Model Point Value = 1 Point Value = 2 Point Value = 3 Point Value = 5 Age 41-60 Minor surgery BMI > 25 kg/m2 Swollen legs Varicose veins or History of unexplained or recurrent spontaneous Oral contraceptives or hormone replacement Sepsis (< 1 month) Serious lung disease, including pneumonia (< 1 month) Abnormal pulmonary function Acute myocardial infarction Congestive heart failure (< 1 month) History of inflammatory bowel disease Medical patient at bed rest Age 61-74 Arthroscopic surgery Major open surgery (> 45 min) Laparoscopic surgery (> 45 min) Malignancy Confined to bed (> 72 hours) Immobilizing plaster cast Central venous access Age >= 75 History of VTE Family history of VTE Factor V Leiden Prothrombin [id number] Lupus anticoagulant Anticardiolipin antibodies Elevated serum homocysteine Heparin-induced thrombocytopenia Other congenital or acquired thrombophilia Stroke (< 1 month) Elective arthroplasty Hip, pelvis, or leg fracture Acute spinal cord injury (< 1 month) Prophylaxis Regimen Total Risk Factor Score Risk Level Prophylaxis Regimen 0-1 Low Early ambulation 2 Moderate Order ONE of the following: *Sequential Compression Device (SCD) *Heparin 5000 units SQ BID 3-4 Higher Order ONE of the following medications: *Heparin 5000 units SQ TID *Enoxaparin/Lovenox 40 mg SQ daily (WT < 150 kg, CrCl > 30 mL/min) *Enoxaparin/Lovenox 30 mg SQ daily (WT < 150 kg, CrCl > 10-29 mL/min) *Enoxaparin/Lovenox 30 mg SQ BID (WT < 150 kg, CrCl > 30 mL/min) AND/OR *Sequential Compression Device (SCD) 5 or more Highest Order ONE of the following medications: *Heparin 5000 units SQ TID (Preferred with Epidurals) *Enoxaparin/Lovenox 40 mg SQ daily (WT < 150 kg, CrCl > 30 mL/min) *Enoxaparin/Lovenox 30 mg SQ daily (WT < 150 kg, CrCl > 10-29 mL/min) *Enoxaparin/Lovenox 30 mg SQ BID (WT < 150 kg, CrCl > 30 mL/min) AND *Sequential Compression Device (SCD) Assessment and Plan Assessment and Plan 31-year-old male with: Diabetic ketoacidosis Uncontrolled type 1 diabetes mellitus Hyperkalemia Dehydration Plan: Admit to ICU. Received fluid boluses in the ER. Continue maintenance IV fluids Started on DKA protocol with insulin drip, IV fluids Watch for hypotension. Monitor and replete electrolytes, follow BUN/creatinine, follow intake output. N.p.o. for now Follow serial labs We will continue to follow in ICU Condition critical with uncontrolled diabetes mellitus and DKA. Transferred on critical care excluding procedures 35 minutes Duncan Mai MD Sep 06, 2017 23:27
[2017-09-07] VITALS (14 sets, daily range): BP systolic 106–131; BP diastolic 54–83; PULSE 92–120; RESP 15–19; TEMP 97.7–98.8; O2SAT 97–100
[2017-09-07] MEDS ORDERED: SODIUM CHLOR 0.9% 1000 ML INJ 1,000 ML IV ONE (00:15)
[2017-09-07] MEDS: DEXT 5%-NACL 0.9% 1000 ML INJ 1,000 ML IV SCH ×2 (00:38→07:38)
[2017-09-07] MEDS ORDERED: MORPHINE SULFATE 4 MG/ML INJ IV SCH (02:00)
[2017-09-07 03:31] LABS: BICARBONATE 20.3 MEQ/L (21.0-32.0); BLOOD UREA NITROGEN 15 MG/DL (7-18); CALCIUM 7.5 MG/DL (8.5-10.1); CHLORIDE 106 MEQ/L (98-107); CREATININE 1.13 MG/DL (0.60-1.30); GLOMERULAR FILTRATION RATE 77 ML/MIN (>89); GLUCOSE,RANDOM 195 MG/DL (74-106); MAGNESIUM 1.9 MG/DL (1.5-2.5); PHOSPHORUS 2.6 MG/DL (2.5-4.9); SODIUM (NA) 140 MEQ/L (136-145)
[2017-09-07] MEDS: CHLORHEXIDINE GLUCONATE 2 % 1 PACK (2 CLOTHS) TOP SCH ×2 (04:00→19:20)
[2017-09-07 09:32] LABS: AUTOMATED NEUTROPHIL # 4.7 TH/MM3 (1.8-7.7); BASOPHIL # 0.1 TH/MM3 (0-0.2); BASOPHIL % 0.7 % (0.0-2.0); EOSINOPHIL # 0.2 TH/MM3 (0-0.4); EOSINOPHIL % 1.9 % (0.0-4.0); HEMATOCRIT 36.4 % (39.0-51.0); HEMOGLOBIN 12.7 GM/DL (13.0-17.0); LYMPHOCYTE # 2.4 TH/MM3 (1.0-4.8); MEAN CELL VOLUME 92.7 FL (80.0-100.0); MEAN CORPUSCULAR HEMOGLOBIN 32.4 PG (27.0-34.0); MEAN CORPUSCULAR HGB CONC 34.9 % (32.0-36.0); MONO % 9.3 % (0.0-8.0); MONOCYTE # 0.7 TH/MM3 (0-0.9); NEUT % 58.1 % (16.0-70.0); PLATELET COUNT 292 TH/MM3 (150-450); RED BLOOD COUNT 3.93 MIL/MM3 (4.50-5.90); RED CELL DISTRIBUTION WIDTH 13.4 % (11.6-17.2)
[2017-09-07 09:56] LABS: ALBUMIN 2.5 GM/DL (3.4-5.0); ALT (GPT) 135 U/L (12-78); AST (GOT) 54 U/L (15-37); BICARBONATE 23.9 MEQ/L (21.0-32.0); BLOOD UREA NITROGEN 11 MG/DL (7-18); CALCIUM 7.9 MG/DL (8.5-10.1); CHLORIDE 107 MEQ/L (98-107); GLOMERULAR FILTRATION RATE 88 ML/MIN (>89); GLUCOSE,RANDOM 155 MG/DL (74-106); MAGNESIUM 1.9 MG/DL (1.5-2.5); PHOSPHORUS 3.4 MG/DL (2.5-4.9); SODIUM (NA) 139 MEQ/L (136-145)
[2017-09-07 09:57] LABS: ALKALINE PHOSPHATASE 176 U/L (45-117); TOTAL BILIRUBIN ADULT 0.3 MG/DL (0.2-1.0); TOTAL PROTEIN 5.6 GM/DL (6.4-8.2)
[2017-09-07] MEDS ORDERED: DEXTROSE 50% IN WATER 50 ML VIAL(D50) IV PUSH PRN ×2 (10:15→12:30)
[2017-09-07] MEDS ORDERED: SODIUM CHLOR 0.9% 1000 ML INJ 1,000 ML IV SCH (10:15)
[2017-09-07] MEDS ORDERED: GLUCAGON 1 MG/ML VIAL OTHER PRN ×2 (10:15→12:30)
--- NOTE | 2017-09-07 10:18 | HHI.CCPN ---
Subjective Remarks/Hospital Course 31-year-old male that presents to the ED for evaluation of hyperglycemia and weakness. Patient has a significant history of diabetes type 1 and is supposed to be in insulin but currently is noncompliant secondary to not being able to afford his insulin. Per report I was given and per patient he was recently at [facility] and was discharged about 2 days ago for DKA. Patient has not taken any of his insulin for the past 2 days and apparently was on his way to the hospital but they had to stop at a gas station as patient was too sick to come. Ambulance was called and they brought him here. Patient was given some fluids and found that his sugar was "high." Patient has a history of DKA in the past year. Patient is hard to get a history from as he is somewhat somnolent and appears to be slightly altered. He complains of pain everywhere. He denies any other medical issues at this time. Pain per patient is 6 out of 10. 09/07 Patient is lying in bed in NAD. AG closed 8. Objective Vital Signs Date Time Temp Pulse Resp B/P (MAP) Pulse Ox O2 Delivery O2 Flow Rate FiO2 09/07/17 10:02 97.7 98 17 122/72 (89) 100 09/07/17 09:00 Room Air Intake and Output 09/07/17 09/07/17 09/08/17 08:00 16:00 00:00 Intake Total 550 ml Output Total 800 ml Balance -250 ml Result Diagram: 09/07/17 0920 09/07/17 0900 Other Results Laboratory Tests Test 09/06/17 20:44 09/06/17 20:52 09/06/17 20:57 09/06/17 21:04 Venous Blood pH 7.23 White Blood Count 7.2 TH/MM3 Red Blood Count 4.88 MIL/MM3 Hemoglobin 15.7 GM/DL Hematocrit 48.0 % Mean Corpuscular Volume 98.2 FL Mean Corpuscular Hemoglobin 32.1 PG Mean Corpuscular Hemoglobin Concent 32.6 % Red Cell Distribution Width 13.4 % Platelet Count 244 TH/MM3 Mean Platelet Volume 9.4 FL Neutrophils (%) (Auto) 62.0 % Lymphocytes (%) (Auto) 28.4 % Monocytes (%) (Auto) 8.1 % Eosinophils (%) (Auto) 0.6 % Basophils (%) (Auto) 0.9 % Neutrophils # (Auto) 4.5 TH/MM3 Lymphocytes # (Auto) 2.1 TH/MM3 Monocytes # (Auto) 0.6 TH/MM3 Eosinophils # (Auto) 0.0 TH/MM3 Basophils # (Auto) 0.1 TH/MM3 CBC Comment AUTO DIFF Differential Total Cells Counted 100 Neutrophils % (Manual) 66 % Band Neutrophils % 2 % Lymphocytes % 22 % Monocytes % 8 % Neutrophils # (Manual) 5.0 TH/MM3 Metamyelocytes 1 % Promyelocytes 1 % Differential Comment FINAL DIFF MANUAL Platelet Estimate NORMAL Platelet Morphology Comment CLUMPED Blood Urea Nitrogen 21 MG/DL Creatinine 1.40 MG/DL Random Glucose 771 MG/DL Total Protein 7.9 GM/DL Albumin 3.6 GM/DL Calcium Level 9.2 MG/DL Alkaline Phosphatase 307 U/L Aspartate Amino Transf (AST/SGOT) 117 U/L Alanine Aminotransferase (ALT/SGPT) 219 U/L Total Bilirubin 0.9 MG/DL Sodium Level 125 MEQ/L Potassium Level 5.2 MEQ/L Chloride Level 86 MEQ/L Carbon Dioxide Level 14.2 MEQ/L Anion Gap 25 MEQ/L Estimat Glomerular Filtration Rate 60 ML/MIN Ethyl Alcohol Level LESS THAN 3 MG/DL B-Hydroxybutyrate 9.52 MMOL/L Lactic Acid Level 2.6 mmol/L Urine Color LIGHT-YELLOW Urine Turbidity CLEAR Urine pH 5.0 Urine Specific [place] 1.021 Urine Protein NEG mg/dL Urine Glucose (UA) 1000 mg/dL Urine Ketones 150 mg/dL Urine Occult Blood NEG Urine Nitrite NEG Urine Bilirubin NEG Urine Urobilinogen LESS THAN 2.0 MG/DL Urine Leukocyte Esterase NEG Urine WBC 1 /hpf Microscopic Urinalysis Comment CULT NOT INDICATED Urine Opiates Screen NEG Urine Barbiturates Screen NEG Urine Amphetamines Screen NEG Urine Benzodiazepines Screen NEG Urine Cocaine Screen NEG Urine Cannabinoids Screen NEG Test 09/06/17 23:17 09/07/17 03:00 09/07/17 09:00 09/07/17 09:20 Lactic Acid Level 4.1 mmol/L 3.6 mmol/L 1.2 mmol/L Blood Urea Nitrogen 15 MG/DL 11 MG/DL Creatinine 1.13 MG/DL 1.00 MG/DL Random Glucose 195 MG/DL 155 MG/DL Calcium Level 7.5 MG/DL 7.9 MG/DL Phosphorus Level 2.6 MG/DL 3.4 MG/DL Magnesium Level 1.9 MG/DL 1.9 MG/DL Sodium Level 140 MEQ/L 139 MEQ/L Potassium Level 3.7 MEQ/L 4.1 MEQ/L Chloride Level 106 MEQ/L 107 MEQ/L Carbon Dioxide Level 20.3 MEQ/L 23.9 MEQ/L Anion Gap 14 MEQ/L 8 MEQ/L Estimat Glomerular Filtration Rate 77 ML/MIN 88 ML/MIN B-Hydroxybutyrate 1.60 MMOL/L 0.90 MMOL/L Total Protein 5.6 GM/DL Albumin 2.5 GM/DL Alkaline Phosphatase 176 U/L Aspartate Amino Transf (AST/SGOT) 54 U/L Alanine Aminotransferase (ALT/SGPT) 135 U/L Total Bilirubin 0.3 MG/DL White Blood Count 8.0 TH/MM3 Red Blood Count 3.93 MIL/MM3 Hemoglobin 12.7 GM/DL Hematocrit 36.4 % Mean Corpuscular Volume 92.7 FL Mean Corpuscular Hemoglobin 32.4 PG Mean Corpuscular Hemoglobin Concent 34.9 % Red Cell Distribution Width 13.4 % Platelet Count 292 TH/MM3 Mean Platelet Volume 7.0 FL Neutrophils (%) (Auto) 58.1 % Lymphocytes (%) (Auto) 30.0 % Monocytes (%) (Auto) 9.3 % Eosinophils (%) (Auto) 1.9 % Basophils (%) (Auto) 0.7 % Neutrophils # (Auto) 4.7 TH/MM3 Lymphocytes # (Auto) 2.4 TH/MM3 Monocytes # (Auto) 0.7 TH/MM3 Eosinophils # (Auto) 0.2 TH/MM3 Basophils # (Auto) 0.1 TH/MM3 CBC Comment DIFF FINAL Differential Comment Objective Remarks Narrative GENERAL: SKIN: Warm and dry. HEAD: Atraumatic. Normocephalic. EYES: Pupils equal and round. No scleral icterus. No injection or drainage. ENT: No nasal bleeding or discharge. Mucous membranes pink and moist. Tongue is midline. No uvula deviation. NECK: Trachea midline. No JVD. CARDIOVASCULAR: Tachycardic rate and rhythm. No murmurs, S3, S4. RESPIRATORY: No accessory muscle use. Clear to auscultation. Breath sounds equal bilaterally. GASTROINTESTINAL: Abdomen soft, non-tender, nondistended. Hepatic and splenic margins not palpable. MUSCULOSKELETAL: Extremities without clubbing, cyanosis, or edema. No obvious deformities. Full range of motion of the upper and lower extremities bilaterally. 2+ pulses bilaterally. NEUROLOGICAL: Awake and alert. No obvious cranial nerve deficits. Motor grossly within normal limits. Five out of 5 muscle strength in the arms and legs. Normal speech. PSYCHIATRIC: Appropriate mood and affect; insight and judgment normal. A/P Assessment and Plan 31-year-old male with: Diabetic ketoacidosis- resolved Uncontrolled type 1 diabetes mellitus Lactic acidemia- cleared Elevated LFT's Plan: Neuro: Awake and alert Pulm: Oxygen PRN keep sats >92% CV: Monitor HR and BP keep MAP>65mmHg Lactic acid cleared 1.2 : Monitor renal function, electrolytes replacement per protocol GI: Start diabetic diet Monitor LFT's, check US liver and Hepatitis profile Endo: Will transition from insulin drip to SSI and Levemir. AG closed ( 8) ID: Monitor for signs of infections ( Fever, WBC) Heme: Monitor CBC GI/DVT prophylaxis Will sign off and transfer care to [facility] Level 2 Wai Villalpando MD Sep 07, 2017 10:18
[2017-09-07] MEDS: SODIUM CHLORIDE 0.9% FLUSH 10 ML FLUSH IV FLUSH SCH ×2 (10:41→19:28)
[2017-09-07 10:49] LABS: HEMOGLOBIN A1C 11.9 % (4.3-6.0)
[2017-09-07] MEDS: INSULIN DETEMIR 100 UNITS/ML VIAL SQ SCH ×2 (10:57→21:47)
[2017-09-07] MEDS ORDERED: INSULIN NovoLIN REGULAR SUPPLEMENTAL SCALE SQ SCH (12:00)
[2017-09-07] MEDS ORDERED: PILL SPLITTER OTHER PRN (13:00)
[2017-09-07] MEDS ORDERED: clonazePAM 0.5 MG TAB PO PRN (13:00)
[2017-09-07] MEDS: INSULIN ASPART 1,000 UNITS/10 ML VIAL SQ SCH (17:49)
[2017-09-07] MEDS: INSULIN ASPART SUPPLEMENTAL SCALE SQ SCH ×2 (17:49→21:47)
--- NOTE | 2017-09-07 21:00 | EKG ---
Date Performed: 09/06/2017 Time Performed: 21:13:40 PTAGE: 31 years EKG: SINUS TACHYCARDIA ABNORMAL RHYTHM ECG NO PREVIOUS TRACING DOCTOR: Lorne Hicks Interpretating Date/Time 09/07/2017 20:59:58
[2017-09-07] MEDS ORDERED: INSULIN DETEMIR 100 UNITS/ML VIAL SQ SCH (22:30)
[2017-09-07] MEDS ORDERED: INSULIN DETEMIR 100 UNITS/ML VIAL SQ ONE (23:45)
[2017-09-08 00:01] VITALS: BP 91/53; PULSE 95; RESP 17; TEMP 97.4; O2SAT 98
[2017-09-08 01:05] VITALS: PULSE 95
[2017-09-08 04:00] VITALS: BP 112/69; PULSE 87; RESP 18; TEMP 97.8; O2SAT 98
[2017-09-08 07:48] VITALS: BP 111/67; PULSE 81; RESP 18; TEMP 97.4; O2SAT 98
[2017-09-08] MEDS: INSULIN ASPART SUPPLEMENTAL SCALE SQ SCH (08:00)
[2017-09-08] MEDS: INSULIN ASPART 1,000 UNITS/10 ML VIAL SQ SCH (08:50)
[2017-09-08] MEDS: SODIUM CHLORIDE 0.9% FLUSH 10 ML FLUSH IV FLUSH SCH (08:51)
[2017-09-08] MEDS ORDERED: SERTRALINE HCL 50 MG TAB PO SCH (09:00)
--- NOTE | 2017-09-08 09:52 | HHI.PR ---
Subjective Remarks Follow-up DKA September 08, 2017-patient seen and examined, DKA resolved, blood glucose improved. Patient is threatening to leave AMA Objective Vitals Vital Signs Date Time Temp Pulse Resp B/P (MAP) Pulse Ox O2 Delivery O2 Flow Rate FiO2 09/08/17 07:48 97.4 81 18 111/67 (82) 98 09/08/17 04:00 97.8 87 18 112/69 (83) 98 09/08/17 01:05 95 09/08/17 00:01 97.4 95 17 91/53 (66) 98 09/07/17 20:00 98.8 103 18 107/63 (78) 98 09/07/17 16:00 98.2 97 18 118/66 (83) 97 09/07/17 12:00 98.3 99 19 131/68 (89) 100 09/07/17 11:00 97.8 96 17 120/77 (91) 100 09/07/17 10:02 97.7 98 17 122/72 (89) 100 I/O 09/07/17 09/07/17 09/07/17 09/08/17 09/08/17 09/08/17 07:00 15:00 23:00 07:00 15:00 23:00 Intake Total 550 ml 600 ml Output Total 800 ml Balance -250 ml 600 ml Intake Oral 600 ml IV Total 550 ml Output Urine Total 800 ml # Voids 1 3 # Bowel Movements 0 0 Result Diagram: 09/07/17 0920 09/07/17 0900 Objective Remarks GENERAL: NAD SKIN: Warm and dry. HEAD: Normocephalic. EYES: No scleral icterus. No injection or drainage. NECK: Supple, trachea midline. No JVD or lymphadenopathy. CARDIOVASCULAR: Regular rate and rhythm without murmurs, gallops, or rubs. RESPIRATORY: Breath sounds equal bilaterally. No accessory muscle use. GASTROINTESTINAL: Abdomen soft, non-tender, nondistended. MUSCULOSKELETAL: No cyanosis, or edema. BACK: Nontender without obvious deformity. No CVA tenderness. Procedures None A/P Problem List: (1) DKA (diabetic ketoacidoses) ICD Code: E13.10 - Other specified diabetes mellitus with ketoacidosis without coma Status: Acute (2) Noncompliance with medication regimen ICD Code: Z91.14 - Patient's other noncompliance with medication regimen Status: Acute Assessment and Plan 31-year-old male with: Diabetic ketoacidosis- resolved Uncontrolled type 1 diabetes mellitus Currently on Levemir 35 units at bedtime, home dose 55 units Continue with insulin sliding scale Lactic acidemia- cleared Elevated LFT's GI/DVT prophylaxis Problem Qualifiers (1) DKA (diabetic ketoacidoses): Qualified Codes: E10.10 - Type 1 diabetes mellitus with ketoacidosis without coma Rafa Cortez MD September 08, 2017 09:52
--- NOTE | 2017-09-08 15:33 | HHI.DS ---
Discharge Summary Admission Date Sep 06, 2017 at 22:48 Discharge Date: September 08, 2017 Admitting Diagnosis severe DKA, non compliant type 1 DM (1) DKA (diabetic ketoacidoses) ICD Code: E13.10 - Other specified diabetes mellitus with ketoacidosis without coma Status: Acute (2) Noncompliance with medication regimen ICD Code: Z91.14 - Patient's other noncompliance with medication regimen Status: Acute Procedures None Brief History - From Admission History of Present Illness HPI 31-year-old male that presents to the ED for evaluation of hyperglycemia and weakness. Patient has a significant history of diabetes type 1 and is supposed to be in insulin but currently is noncompliant secondary to not being able to afford his insulin. Per report I was given and per patient he was recently at [facility] and was discharged about 2 days ago for DKA. Patient has not taken any of his insulin for the past 2 days and apparently was on his way to the hospital but they had to stop at a gas station as patient was too sick to come. Ambulance was called and they brought him here. Patient was given some fluids and found that his sugar was "high." Patient has a history of DKA in the past year. Patient is hard to get a history from as he is somewhat somnolent and appears to be slightly altered. He complains of pain everywhere. He denies any other medical issues at this time. Pain per patient is 6 out of 10. History PFSH Past Medical History Blood Disorders: No Cardiovascular Problems: Yes (HTN) Diabetes: Yes Patient Takes Glucophage: No Diminished Hearing: No Hypertension: Yes Social History Alcohol Use: No Tobacco Use: No Substance Use: No Allergies-Medications Allergies-Medications (Allergen,Severity, Reaction): Coded Allergies: No Known Allergies (Verified Allergy, Unknown, 09/06/17) Uncoded Allergies: N (Allergy, Unknown, 01/17/03) Reported Meds & Prescriptions Reported Meds & Active Scripts Active Zoloft (Sertraline HCl) 50 Mg Tab 25 Mg PO DAILY Klonopin (Clonazepam) 0.5 Mg Tab 0.5 Mg PO Q8HR PRN Novolog Inj (Insulin Aspart) 1,000 Unit/10 Ml Vial 5-25 Units SQ ACHS Max dose at bedtime:( )units; sugars less than 70,(0) units; sugars 150-199,(5) units; sugars 200-249,(10) units; sugars 250-299,(15) units; sugars 300-349,(20)units; sugars greater than 349,(25)units Levemir Inj (Insulin Detemir) 1,000 unit/ 10 ML Vial 55 Units SQ HS 30 Days Do not mix with any other Insulin. ROS Review of Systems Except as stated in HPI: all other systems reviewed are Neg CBC/BMP: 09/07/17 0920 09/07/17 0900 Significant Findings Laboratory Tests Test 09/06/17 20:44 09/06/17 20:52 09/06/17 20:57 09/06/17 21:04 Venous Blood pH 7.23 (7.360-7.400) Monocytes (%) (Auto) 8.1 % (0.0-8.0) Promyelocytes 1 % (0-0) Platelet Morphology Comment CLUMPED (NORMAL) Blood Urea Nitrogen 21 MG/DL (7-18) Creatinine 1.40 MG/DL (0.60-1.30) Random Glucose 771 MG/DL (74-106) Alkaline Phosphatase 307 U/L (45-117) Aspartate Amino Transf (AST/SGOT) 117 U/L (15-37) Alanine Aminotransferase (ALT/SGPT) 219 U/L (12-78) Sodium Level 125 MEQ/L (136-145) Potassium Level 5.2 MEQ/L (3.5-5.1) Chloride Level 86 MEQ/L (98-107) Carbon Dioxide Level 14.2 MEQ/L (21.0-32.0) Anion Gap 25 MEQ/L (5-15) Estimat Glomerular Filtration Rate 60 ML/MIN (>89) B-Hydroxybutyrate 9.52 MMOL/L (0.00-0.39) Lactic Acid Level 2.6 mmol/L (0.4-2.0) Urine Glucose (UA) 1000 mg/dL (NEG) Urine Ketones 150 mg/dL (NEG) Test 09/06/17 23:17 09/07/17 03:00 09/07/17 09:00 09/07/17 09:20 Lactic Acid Level 4.1 mmol/L (0.4-2.0) 3.6 mmol/L (0.4-2.0) Random Glucose 195 MG/DL (74-106) 155 MG/DL (74-106) Calcium Level 7.5 MG/DL (8.5-10.1) 7.9 MG/DL (8.5-10.1) Carbon Dioxide Level 20.3 MEQ/L (21.0-32.0) Estimat Glomerular Filtration Rate 77 ML/MIN (>89) 88 ML/MIN (>89) Hemoglobin A1c 11.9 % (4.3-6.0) B-Hydroxybutyrate 1.60 MMOL/L (0.00-0.39) 0.90 MMOL/L (0.00-0.39) Total Protein 5.6 GM/DL (6.4-8.2) Albumin 2.5 GM/DL (3.4-5.0) Alkaline Phosphatase 176 U/L (45-117) Aspartate Amino Transf (AST/SGOT) 54 U/L (15-37) Alanine Aminotransferase (ALT/SGPT) 135 U/L (12-78) Red Blood Count 3.93 MIL/MM3 (4.50-5.90) Hemoglobin 12.7 GM/DL (13.0-17.0) Hematocrit 36.4 % (39.0-51.0) Monocytes (%) (Auto) 9.3 % (0.0-8.0) PE at Discharge GENERAL: NAD SKIN: Warm and dry. HEAD: Normocephalic. EYES: No scleral icterus. No injection or drainage. NECK: Supple, trachea midline. No JVD or lymphadenopathy. CARDIOVASCULAR: Regular rate and rhythm without murmurs, gallops, or rubs. RESPIRATORY: Breath sounds equal bilaterally. No accessory muscle use. GASTROINTESTINAL: Abdomen soft, non-tender, nondistended. MUSCULOSKELETAL: No cyanosis, or edema. BACK: Nontender without obvious deformity. No CVA tenderness. Hospital Course Before signing AMA, patient was treated for: Diabetic ketoacidosis- resolved s/p treatment with insulin drip, IV fluid hydration and serial monitoring of electrolyte. Uncontrolled type 1 diabetes mellitus Initially switched to Levemir 5 units every 12 hours then increase to Levemir 35 units at bedtime, home dose 55 units Placed on insulin sliding scale Lactic acidemia- cleared Elevated LFT's GI/DVT prophylaxis Pt Condition on Discharge: Good Discharge Disposition: Discharge Home Discharge Time: <= 30 minutes Rafa Cortez MD September 08, 2017 15:33
== END 2017-09-08 10:23 | disposition left against medical advice (07) | DRG 639 ==
LOC: NEPE 20:42 → NEDA 22:48 → NEDH 09-07 03:30 → N06A 09-07 11:08
PROVIDERS: ADMIT Hospitalist; ATTEND Hospitalist
DX: E10.10 Type 1 diabetes mellitus with ketoacidosis without coma (principal); E87.5 Hyperkalemia; I10 Essential (primary) hypertension; E86.0 Dehydration; Z79.4 Long term (current) use of insulin; Z79.899 Other long term (current) drug therapy; Z91.19 Patient's noncompliance with other medical treatment and regimen
CPT/HCPCS: 80048; 80053; 80307; 81001; 82010; 82800; 82948; 83036; 83605; 83735; 84100; 85007; 85025; 85027; 87040; 93005; 96361; 96365; 96375; J1815; J1817; J2270; J2405; J7030; J7042